=== PATIENT | male | born 1950 | race Caucasian/White ===

== ENCOUNTER 2022-10-28 15:15 | Emergency (ER) | payer OTHER ==
[2022-10-28 15:20] VITALS: BP 132/78; PULSE 98; RESP 18; TEMP 98.9; BMI 21.2
[2022-10-28] MEDS ORDERED: DIPHTH,PERTUSS(ACELL),TET 0.5 ML DISP.SYRIN IM ONE ×2 (16:45→16:47)
== END 2022-10-28 16:58 | disposition home or self-care (01) ==
LOC: FER 15:15
PROC: 3E0234Z Introduction of Serum, Toxoid and Vaccine into Muscle, Percutaneous Approach (ICD-10-PCS; principal; 2022-10-28)
DX: R04.0 Epistaxis (principal); W01.0XXA Fall on same level from slipping, tripping and stumbling without subsequent striking against object, initial encounter; Y93.01 Activity, walking, marching and hiking
CPT/HCPCS: 70450-TC; 70486-TC; 72125-TC; 90471; 90715; 99284-25